=== PATIENT | female | born 1985 | race African-American/Black ===

== ENCOUNTER 2023-05-20 21:51 | Emergency (ER) | payer MEDICAID ==
[~2023-05-20] VITALS: Ht 322.6 cm; Wt 86.0 kg
[2023-05-20 21:56] VITALS: O2SAT 100
[2023-05-20] MEDS ORDERED: DIPHENHYDRAMINE 50MG/ML VIAL IM STA (22:40)
[2023-05-20] MEDS ORDERED: LORAZEPAM 2MG/ML CPJ IM STA (22:40)
[2023-05-20] MEDS ORDERED: HALOPERIDOL LACTATE 5MG/ML VIAL IM STA (22:40)
[2023-05-21 01:34] LABS: BASOPHILS % 0.5 % (0.0-2.0); EOSINOPHILS % 2.1 % (0.0-5.0); HEMATOCRIT. 32.5 % (36.0-48.0); HEMOGLOBIN. 10.5 g/dL (12.0-16.0); LYMPHOCYTES % 36.6 % (20.0-50.0); MEAN CORPUSCULAR HEMOGLOBIN 26.2 pg (28.0-32.0); MEAN CORPUSCULAR VOLUME 81.3 fL (81.0-99.0); MEAN PLATELET VOLUME 10.6 fl (7.4-10.4); MONOCYTES % 4.5 % (2.0-8.0); NEUTROPHILS % 56.3 % (40.0-76.0); PLATELET 167 x1000/uL (130-400); RED BLOOD CELL COUNT 3.99 mill/uL (4.2-5.4); RED CELL DISTRIBUTION WIDTH 14.5 % (11.6-14.6)
[2023-05-21 01:42] LABS: CHLORIDE 116 mEq/L (98-107)
[2023-05-21 01:50] LABS: ETHANOL BLOOD < 10 mg/dL (-10)
[2023-05-21 01:57] LABS: HCG SCREEN NEGATIVE
[2023-05-21] MEDS ORDERED: LORAZEPAM 1MG TABLET PO ONE (06:00)
[2023-05-21 19:10] LABS: CLARITY URINE CLEAR (CLEAR); COLOR URINE YELLOW (YELLOW); KETONES URINE NEGATIVE (NEGATIVE); LEUKOCYTE ESTERASE URINE NEGATIVE (NEGATIVE); NITRITE URINE NEGATIVE (NEGATIVE); OCCULT BLOOD URINE 3+ (NEGATIVE); PH URINE 6.5 (4.5-8.0); PROTEIN URINE NEGATIVE (NEGATIVE); SPECIFIC GRAVITY URINE 1.022 (1.005-1.030); UROBILINOGEN URINE 0.2 E.U./dL (0.2-1.0)
[2023-05-21 19:20] LABS: *AMPHETAMINES SCREEN URINE NEGATIVE (NEGATIVE); *BARBITURATES SCREEN URINE NEGATIVE (NEGATIVE); *BENZODIAZEPINES SCREEN URINE NEGATIVE (NEGATIVE); *COCAINE SCREEN URINE NEGATIVE (NEGATIVE); CANNABINOID URINE SCREEN NEGATIVE (NEGATIVE); METHADONE URINE SCREEN NEGATIVE (NEGATIVE); OPIATES URINE SCREEN NEGATIVE (NEGATIVE); PHENCYCLIDINE URINE SCREEN NEGATIVE (NEGATIVE)
[2023-05-22] MEDS: CITALOPRAM HYDROBROMIDE 10MG TABLET PO SCH ×2 (09:00→22:00)
[2023-05-23 00:25] VITALS: BP 113/67; PULSE 84; RESP 16; TEMP 98
== END 2023-05-23 01:11 ==
LOC: ER 21:51
DX: R45.851 Suicidal ideations (principal); Z20.822 Contact with and (suspected) exposure to COVID-19
CPT/HCPCS: 80053; 80305; 81003; 80307; 80329; 80320; 84703; 85025; 36415; 99285; 87426; C9803; G0480